=== PATIENT | male | born 1960 | race Two or more races ===

== ENCOUNTER 2017-01-17 12:48 | Emergency (ER) | payer OTHER ==
[2017-01-17 13:49] VITALS: BP 140/78
[2017-01-17] MEDS ORDERED: Tetan/Diph/Pertus SYR(Tdap)* 0.5 ML SYR(BOOSTRIX) use SYR IM ONE (13:50)
[2017-01-17] MEDS ORDERED: Lidocaine 2% PF * 5 ML VIAL INJ ONE (14:01)
--- NOTE | 2017-01-17 14:53 | UC ---
Hand/Wrist HPI - HPI Summary HPI Summary: ONE HOUR [employer]PER[employer] CUT LEFT THUMB ON PIECE OF SHEET METAL. CURRENTLY ON BLOOD THINNER. LAST TETANUS 10YRS AGO. BLEEDING CONTROLLED AT TIME OF CLINICAL VISIT. - History Of Current Complaint Chief Complaint: UCLaceration Stated Complaint: LEFT THUMB LACERATION Time Seen by Provider: 01/17/17 13:33 Hx Obtained From: Patient, Family/Pension Agent Onset/Duration: Sudden Onset, Lasting Minutes, Still Present Severity Initially: Mild Severity Currently: Mild Pain Intensity: 0 Pain Scale Used: 0-10 Numeric Character Of Pain: Sharp Aggravating Factor(s): Movement, Other - TOUCH Alleviating: Nothing Related History: Dominant Hand Right - Allergies/Home Medications Allergies/Adverse Reactions: Allergies Allergy/AdvReac Type Severity Reaction Status Date / Time No Known Allergies Allergy Verified 01/17/17 13:46 Home Medications: Home Medications Atorvastatin* [Lipitor*] 20 mg PO DAILY 01/17/17 [History Confirmed 01/17/17] Rivaroxaban TAB(*) [Xarelto 10 mg (*)] 10 mg PO DAILY 01/17/17 [History Confirmed 01/17/17] PMH/Surg Hx/FS Hx/Imm Hx Previously Healthy: Yes - Surgical History Surgical History: Yes Surgery Procedure, Year, and Place: hyoidectomy. hernia repair x2 - Family History Known Family History: Negative: Blood Disorder - Social History Occupation: Employed Full-time Lives: With Family Alcohol Use: Occasionally Substance Use Type: None Smoking Status (MU): Former Smoker When Did the Patient Quit Smoking/Using Tobacco: 14 years ago - Immunization History Most Recent Influenza Vaccination: no Most Recent Tetanus Shot: unknown Review of Systems Constitutional: Negative Skin: Other - LACERATION LEFT THUMB Eyes: Negative ENT: Negative Respiratory: Negative Cardiovascular: Negative Gastrointestinal: Negative Genitourinary: Negative Motor: Negative Neurovascular: Negative Musculoskeletal: Arthralgia - LEFT THUMB, Myalgia - LEFT THUMB Neurological: Negative Psychological: Negative Is Patient Immunocompromised?: No All Other Systems Reviewed And Are Negative: Yes Physical Exam Triage Information Reviewed: Yes Appearance: Well-Appearing, No Pain Distress, Well-Nourished Vital Signs: Initial Vital Signs Temp 98.5 F 01/17/17 13:43 Pulse 56 01/17/17 13:43 Resp 16 01/17/17 13:43 BP 140/78 01/17/17 13:43 Pulse Ox 99 01/17/17 13:43 Vital Signs Reviewed: Yes Eye Exam: Normal ENT Exam: Normal ENT: Positive: Normal ENT inspection, Hearing grossly normal, TMs normal Dental Exam: Normal Neck exam: Normal Neck: Positive: Supple, Nontender, No Lymphadenopathy Respiratory Exam: Normal Respiratory: Positive: Chest non-tender, Lungs clear, Normal breath sounds, No respiratory distress, No accessory muscle use Cardiovascular Exam: Normal Cardiovascular: Positive: RRR, No Murmur, Pulses Normal Abdominal Exam: Normal Musculoskeletal: Positive: Strength Intact, ROM Intact, No Edema, Other: - LACERATION LEFT THUMB Neurological Exam: Normal Psychological Exam: Normal Skin: Positive: Other - LACERATION LEFT THUMB Procedures - Laceration/Wound Repair 1 Location: upper extremity - LEFT THUMB Description: Irregular Anesthesia: Digital, 2.0% Length, Depth and Shape: 3CM X 5mm X 5mm Irrigated w/ Saline (ccs): 1,000 Laceration/Wound Explored: clean Closure: Single Layer Suture Type: Prolene - 4 X 4-0 Hand/Wrist Course/Dx - Differential Dx/Diagnosis Differential Diagnosis/HQI/PQRI: Infection, Sprain, Strain Provider Diagnoses: LACERATION LEFT THUMB WITH REPAIR Discharge - Discharge Plan Condition: Stable Disposition: HOME Patient Education Materials: Finger Laceration (ED) Referrals: [facility] [place] [facility]IAN REFERRAL [Outside] Additional Instructions: you have four sutures in your left thumb. please have sutures removed in ten days Images Hands: 1 - LACERATION 3CM LEFT THUMB
== END 2017-01-17 14:45 | disposition home or self-care (01) ==
LOC: UCCORT 12:48
DX: S61.012A Laceration without foreign body of left thumb without damage to nail, initial encounter (principal); W45.8XXA Other foreign body or object entering through skin, initial encounter; Y92.9 Unspecified place or not applicable; Z87.891 Personal history of nicotine dependence; Z79.01 Long term (current) use of anticoagulants
CPT/HCPCS: 12002; 90471; 90715; 99211; G0463

== ENCOUNTER 2017-01-25 09:39 | Emergency (ER) | payer OTHER ==
[2017-01-25 10:19] VITALS: BP 147/84
--- NOTE | 2017-01-25 10:35 | ED ---
ED Suture/Wound Check - HPI Summary HPI Summary: 56 yr old male with the complaint of sutures removed from thumb. He has no other complaints. He states he has regained the sensation in the tip of his thumb, and he has no pain at this point. No drainage. - History Of Current Complaint Chief Complaint: UCLaceration Stated Complaint: SUTURE REMOVAL Time Seen by Provider: 01/25/17 10:22 - Allergies/Home Medications Allergies/Adverse Reactions: Allergies Allergy/AdvReac Type Severity Reaction Status Date / Time No Known Allergies Allergy Verified 01/25/17 10:11 PMH/Surg Hx/FS Hx/Imm Hx Previously Healthy: Yes - Surgical History Surgery Procedure, Year, and Place: hyoidectomy. hernia repair x2 Infectious Disease History: No Infectious Disease History: Denies: Traveled Outside the [place] in Last 30 Days - Family History Known Family History: Positive: None Negative: Blood Disorder - Social History Alcohol Use: Occasionally Substance Use Type: Reports: None Smoking Status (MU): Former Smoker Review of Systems Constitutional: Negative Positive: Other - sutures in left thumb All Other Systems Reviewed And Are Negative: Yes Physical Exam Triage Information Reviewed: Yes Vital Signs On Initial Exam: Initial Vitals Temp Pulse Resp BP Pulse Ox 97.6 F 54 16 147/84 100 01/25/17 10:12 01/25/17 10:12 01/25/17 10:12 01/25/17 10:12 01/25/17 10:12 Vital Signs Reviewed: Yes Appearance: Positive: Well-Appearing, No Pain Distress Skin: Positive: Other - sutures thumb Head/Face: Positive: Normal Head/Face Inspection Eyes: Positive: EOMI ENT: Positive: Normal ENT inspection Neck: Positive: Nontender Respiratory/Lung Sounds: Positive: Other - normal effort Musculoskeletal: Positive: Strength/ROM Intact Neurological: Positive: Sensory/Motor Intact, Alert, Oriented to Person Place, Time Procedures - Procedure Summary Procedure Summary: The sutures from the left thumb were removed, and the wound appears healed well without drainage or redness. Diagnostics - Vital Signs Vital Signs Temp Pulse Resp BP Pulse Ox 01/25/17 10:12 97.6 F 54 16 147/84 100 - Laboratory Lab Statement: Any lab studies that have been ordered have been reviewed, and results considered in the medical decision making process. Course/Dx - Course Course Of Treatment: 56 yr old with sutures removed from his left thumb and doing well. DC to home - Clinical Impression Provider Diagnoses: Encounter for removal of sutures Discharge - Discharge Plan Condition: Good Disposition: HOME Patient Education Materials: Stitches Removal (ED) Referrals: Bandar Bonilla MD [Primary Care Provider] -
== END 2017-01-25 10:35 | disposition home or self-care (01) ==
LOC: UCCORT 09:39
DX: Z48.02 Encounter for removal of sutures (principal)

== ENCOUNTER 2017-06-28 09:55 | Emergency (ER) | payer OTHER ==
[2017-06-28 11:16] VITALS: BP 125/72
--- NOTE | 2017-06-28 11:48 | UC ---
Respiratory Complaint HPI - HPI Summary HPI Summary: 57yo thinks he had the flu a week ago f/c, nasal congest and cough as well as myalgias and fatigue now with sinus pressure and pain has been very free for about 3-4 days - History of Current Complaint Chief Complaint: UCRespiratory Stated Complaint: FLU SYMPTOMS Time Seen by Provider: 06/28/17 11:30 Hx Obtained From: Patient Onset/Duration: Gradual Onset, Lasting Days Timing: Constant Severity Initially: Moderate Severity Currently: Mild Pain Intensity: 4 Pain Scale Used: 0-10 Numeric Character: Cough: Nonproductive Aggravating Factors: Nothing Alleviating Factors: Nothing Associated Signs And Symptoms: Positive: Nasal Congestion, Sinus Discomfort - Allergies/Home Medications Allergies/Adverse Reactions: Allergies Allergy/AdvReac Type Severity Reaction Status Date / Time No Known Allergies Allergy Verified 06/28/17 10:56 Home Medications: Home Medications Diphenhydram/PE/Dm/Acetamin/GG [Daytime-Cold [id number]] 2 each PO BID PRN 06/28/17 [History Confirmed 06/28/17] PMH/Surg Hx/FS Hx/Imm Hx Previously Healthy: Yes Cardiovascular History: Deep Vein Thrombosis Respiratory History: Pulmonary Embolism - Surgical History Surgical History: Yes Surgery Procedure, Year, and Place: hyoidectomy. hernia repair x2 - Family History Known Family History: Positive: Hypertension Negative: Blood Disorder - Social History Alcohol Use: Occasionally Substance Use Type: None Smoking Status (MU): Former Smoker When Did the Patient Quit Smoking/Using Tobacco: 2001 - Immunization History Most Recent Influenza Vaccination: no Most Recent Tetanus Shot: unknown Review of Systems Constitutional: Fatigue Skin: Negative Eyes: Negative ENT: Sinus Congestion, Sinus Pain/Tenderness Respiratory: Negative Cardiovascular: Negative Gastrointestinal: Negative Genitourinary: Negative Motor: Negative Neurovascular: Negative Musculoskeletal: Negative Neurological: Headache Psychological: Negative Is Patient Immunocompromised?: No All Other Systems Reviewed And Are Negative: Yes Physical Exam Triage Information Reviewed: Yes Appearance: Well-Appearing, No Pain Distress, Well-Nourished Vital Signs: Initial Vital Signs Temp 99 F 06/28/17 10:58 Pulse 72 06/28/17 10:58 Resp 20 06/28/17 10:58 BP 125/72 06/28/17 10:58 Pulse Ox 98 06/28/17 10:58 Vital Signs Reviewed: Yes Eyes: Positive: Conjunctiva Clear ENT: Positive: Hearing grossly normal, Pharynx normal, Nasal congestion, TMs normal, Sinus tenderness, Uvula midline. Negative: Nasal drainage, TM bulging, TM dull, TM red, Tonsillar swelling, Tonsillar exudate, Trismus, Muffled voice, Hoarse voice Neck: Positive: Supple, Nontender, No Lymphadenopathy Respiratory: Positive: Lungs clear, Normal breath sounds, No respiratory distress, No accessory muscle use Cardiovascular: Positive: RRR, No Murmur Musculoskeletal: Positive: ROM Intact, No Edema Neurological: Positive: Alert, Muscle Tone Normal Psychological Exam: Normal Skin Exam: Normal UC Diagnostic Evaluation - Laboratory O2 Sat by Pulse Oximetry: 98 - normal/not hypoxic Respiratory Course/Dx - Differential Dx/Diagnosis Provider Diagnoses: acute sinusitis Discharge - Discharge Plan Condition: Stable Disposition: HOME Prescriptions: Amoxicillin PO (*) [Amoxicillin 875 MG (*)] 875 mg PO BID #20 tab Patient Education Materials: Sinusitis (ED) Referrals: Bandar Bonilla MD [Primary Care Provider] - 5 Days (if not better)
== END 2017-06-28 11:52 | disposition home or self-care (01) ==
LOC: UCCORT 09:55
DX: J01.90 Acute sinusitis, unspecified (principal); Z86.718 Personal history of other venous thrombosis and embolism; Z87.891 Personal history of nicotine dependence; Z86.711 Personal history of pulmonary embolism
CPT/HCPCS: 99212; G0463

== ENCOUNTER 2017-12-31 07:43 | Emergency (ER) | payer OTHER ==
[2017-12-31 08:02] VITALS: BP 154/83
[2017-12-31] MEDS ORDERED: Lidocaine 2% 10 ML* VIAL INJ ONE (08:10)
[2017-12-31] MEDS ORDERED: Lidocaine 2% PF * 5 ML VIAL INJ ONE (08:15)
--- NOTE | 2017-12-31 08:15 | UC ---
Laceration HPI - HPI Summary HPI Summary: laceration left ring finger x 1 hr ago cut his left ring finger on a metal object this morning cut is deep , bleeding was controlled by applying pressure , he is moving his finger well - History Of Current Complaint Chief Complaint: UCLaceration Stated Complaint: LEFT RING FINGER LACERATION Time Seen by Provider: 12/31/17 07:59 Hx Obtained From: Patient Laceration Location: Finger - left ring finger Mechanism Of Injury: Blunt Trauma Onset/Duration: Sudden Onset, Lasting Hours - 1, Still Present Severity: Moderate Pain Intensity: 3 Aggravating Factors: Nothing - Allergies/Home Medications Allergies/Adverse Reactions: Allergies Allergy/AdvReac Type Severity Reaction Status Date / Time No Known Allergies Allergy Verified 12/31/17 08:03 Home Medications: Home Medications Fluticasone NASAL SPRAY 50MCG* [Flonase NASAL SPRAY 50MCG*] 1 spray BOTH NARES DAILY 12/31/17 [History Confirmed 12/31/17] PMH/Surg Hx/FS Hx/Imm Hx - Additional Past Medical History Additional PMH: PE / DVT Cardiovascular History: Deep Vein Thrombosis - Surgical History Surgical History: Yes Surgery Procedure, Year, and Place: hyoidectomy. hernia repair x2 - Family History Known Family History: Positive: None, Hypertension Negative: Blood Disorder - Social History Alcohol Use: Occasionally Substance Use Type: None Smoking Status (MU): Former Smoker When Did the Patient Quit Smoking/Using Tobacco: 2001 - Immunization History Most Recent Influenza Vaccination: no Most Recent Tetanus Shot: 2016 Review of Systems Constitutional: Negative Eyes: Negative ENT: Negative Respiratory: Negative Cardiovascular: Negative Is Patient Immunocompromised?: No All Other Systems Reviewed And Are Negative: Yes Physical Exam Triage Information Reviewed: Yes Appearance: Well-Appearing, No Pain Distress, Well-Nourished Vital Signs: Initial Vital Signs Temp 98.7 F 12/31/17 07:55 Pulse 70 12/31/17 07:55 Resp 18 12/31/17 07:55 BP 154/83 12/31/17 07:55 Pulse Ox 97 12/31/17 07:55 Vital Signs Reviewed: Yes Eye Exam: Normal Eyes: Positive: Conjunctiva Clear ENT: Positive: Normal ENT inspection, Hearing grossly normal, Pharynx normal Neck exam: Normal Neck: Positive: Supple, Nontender Respiratory: Positive: Chest non-tender, Lungs clear, Normal breath sounds Cardiovascular: Positive: RRR, No Murmur, Pulses Normal Skin: Positive: Other - laceration left ring finger 1 cm in diameter, minimal bleeding Laceration Repair - Laceration Repair 1 Description: Linear Laceration Size After Repair: Length (cm) - 1, Width (mm) - 2, Depth (mm) - 2 Modified For Repair: No Type Injection: Local Anesthesia Used: 2.0% Lido - 5 ml Cleansing Completed Via Routine Prep: Yes Irrigation With Pressure Irrigation Device: Yes Closure Method: Single Layer Suture Of: Skin Suture Type: Nylon - 5.0 x 5 Laceration Course/Dx - Differential Dx - Laceration/Wound Provider Diagnoses: laceration left ring finger Discharge - Sign-Out/Discharge Documenting (check all that apply): Patient Departure All imaging exams completed and their final reports reviewed: No Studies - Discharge Plan Condition: Stable Disposition: HOME Patient Education Materials: Finger Laceration (ED) Referrals: Bandar Bonilla MD [Primary Care Provider] - Additional Instructions: follow up in 10 days for suture removal - Billing Disposition and Condition Condition: STABLE Disposition: Home
== END 2017-12-31 08:56 | disposition home or self-care (01) ==
LOC: UCCORT 07:43
DX: S61.215A Laceration without foreign body of left ring finger without damage to nail, initial encounter (principal); W26.9XXA Contact with unspecified sharp object(s), initial encounter; Y93.9 Activity, unspecified; Y92.9 Unspecified place or not applicable; Z87.891 Personal history of nicotine dependence
CPT/HCPCS: 12001; 99211; G0463

== ENCOUNTER 2018-02-25 12:12 | Emergency (ER) | payer OTHER ==
[2018-02-25 12:47] VITALS: BP 127/76
--- NOTE | 2018-02-25 13:06 | UC ---
Complaint Male HPI - HPI Summary HPI Summary: dysuria x 3 days frequency / hesitancy , + fever, chills , body aches lower abdominal pain , no nausea or vomiting - History of Current Complaint Chief Complaint: UCGU Stated Complaint: URINARY COMPLAINT Time Seen by Provider: 02/25/18 12:40 Hx Obtained From: Patient Onset/Duration: Gradual Onset, Lasting Days - 3, Still Present Timing: Constant Severity Initially: Moderate Severity Currently: Moderate Pain Intensity: 0 Location: Suprapubic Character: Burning Aggravating Factor(s): Voiding Associated Signs And Symptoms: Positive: Diaphoresis, Back Pain, Fever, Dysuria , Penile Discharge. Negative: Nausea, Penile Swelling - Allergies/Home Medications Allergies/Adverse Reactions: Allergies Allergy/AdvReac Type Severity Reaction Status Date / Time No Known Allergies Allergy Verified 02/25/18 12:41 Home Medications: Home Medications Acetaminophen [Acetaminophen Extra Strength] 500 mg PO ONCE PRN 02/25/18 [ History Confirmed 02/25/18] PMH/Surg Hx/FS Hx/Imm Hx - Additional Past Medical History Additional PMH: PE, DVT high cholesterol Respiratory History: Pulmonary Embolism - Surgical History Surgical History: Yes Surgery Procedure, Year, and Place: hyoidectomy. hernia repair x2 - Family History Known Family History: Positive: None, Hypertension Negative: Blood Disorder - Social History Alcohol Use: Occasionally Substance Use Type: None Smoking Status (MU): Former Smoker When Did the Patient Quit Smoking/Using Tobacco: 2001 - Immunization History Most Recent Influenza Vaccination: no Most Recent Tetanus Shot: 2017 Review of Systems Constitutional: Fever, Chills, Fatigue Skin: Negative Eyes: Negative ENT: Negative Respiratory: Negative Cardiovascular: Negative Is Patient Immunocompromised?: No All Other Systems Reviewed And Are Negative: Yes Physical Exam Triage Information Reviewed: Yes Appearance: Well-Appearing, No Pain Distress Vital Signs: Initial Vital Signs Temp 99.4 F 02/25/18 12:42 Pulse 77 02/25/18 12:42 Resp 16 02/25/18 12:42 BP 127/76 02/25/18 12:42 Pulse Ox 100 02/25/18 12:42 Vital Signs Reviewed: Yes Eyes: Positive: Conjunctiva Clear ENT: Positive: Normal ENT inspection, Hearing grossly normal, Pharynx normal Neck: Positive: Supple, Nontender, No Lymphadenopathy Respiratory: Positive: Chest non-tender, Lungs clear, Normal breath sounds Cardiovascular: Positive: RRR, No Murmur, Pulses Normal Abdominal Exam: Normal Abdomen Description: Positive: Nontender, Soft. Negative: CVA Tenderness (R), CVA Tenderness (L), Distended, Guarding Bowel Sounds: Positive: Present Skin Exam: Normal Complaint Male Course/Dx - Differential Dx/Diagnosis Provider Diagnoses: prostatitis Discharge - Sign-Out/Discharge Documenting (check all that apply): Patient Departure All imaging exams completed and their final reports reviewed: No Studies - Discharge Plan Condition: Stable Disposition: HOME Prescriptions: Ciprofloxacin TAB* [Cipro 500 MG TAB*] 500 mg PO BID #20 tab Patient Education Materials: Prostatitis (ED) Referrals: Bandar Bonilla MD [Primary Care Provider] - 7 Days - Billing Disposition and Condition Condition: STABLE Disposition: Home
== END 2018-02-25 13:05 | disposition home or self-care (01) ==
LOC: UCCORT 12:12
DX: N41.9 Inflammatory disease of prostate, unspecified (principal); Z87.891 Personal history of nicotine dependence
CPT/HCPCS: 81003; 87086; 99212; G0463

== ENCOUNTER 2019-03-17 08:14 | Emergency (ER) | payer OTHER ==
--- OUTSIDE RECORDS SUMMARY | 2019-03-17 08:21 | XMS REPORT | Continuity of Care Document ---
:1960 External Reference #:[id number] Author Name Sharon Loo MD (transmitted by agent of provider Melania Austin) Address [address], [place] [address] Care Team Providers Name Role Phone Sharon Loo M.D. 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 Problems Active Problems Provider Date Impaired fasting glycaemia Bandar Bonilla M.D.,FACP Onset: 07/03/2016 H/O: pulmonary embolus Bandar Bonilla M.D.,FACP Onset: 07/03/2016 Note: 1981 H/O: Deep vein thrombosis Bandar Bonilla M.D.,FACP Onset: 07/03/2016 Note: 1995 Mixed hyperlipidemia Bandar Bonilla M.D.,FACP Onset: 07/03/2016 Allergic rhinitis due to pollen Bandar Bonilla M.D.,FACP Onset: 2017 Social History Type Date Description Comments Sex Unknown Tobacco Use Start: Unknown End: Former Cigarette Smoker Unknown Smoking Status Reviewed: 02/25/19 Former Cigarette Smoker ETOH Use 07/03/2016 consumes 2-3 beers per day Tobacco Use Start: Unknown End: Patient is a former Quit 2001; 1ppd Unknown smoker max, began age 15 Recreational Drug Use Denies Drug Use Exercise Type/Frequency Exercises rarely Allergies, Adverse Reactions, Alerts Description No Known Drug Allergies Medications Active Medications SIG Qnty Indications Ordering Date Provider Sildenafil Citrate 1/2 tablet one hour 10tabs Sharon Loo MD 10/16/2018 before intercourse 100mg Tablets Fluticasone spray 1 spray in 16gm Bandar Crowder 02/05/2017 Propionate each nostril twice Devante Bonilla,FACP 50mcg/Act daily prn Suspension Xarelto 1 by mouth every 14tabs Sharon Loo MD 01/05/2016 20mg Tablets day samples Atorvastatin Calcium 1 by mouth every 90tabs Sharon Loo MD day 10mg Tablets Alavert 1 every 12 hours as Unknown Allergy/Sinus needed 5-120mg Tablets ER 12HR Immunizations CPT Code Status Date Vaccine Lot # [id number] Given 06/15/2016 Tdap - Tetanus/Diptheria/Acellular Pertussis Vital Signs Date Vital Result Comment 02/25/2019 8:27am Height 75.75 inches 6'3.75" Weight 197.00 lb Heart Rate 65 /min BP Systolic Sitting 159 mmHg BP Diastolic Sitting 80 mmHg O2 % BldC Oximetry 99 % BMI (Body Mass Index) 24.1 kg/m2 08/26/2018 11:21am Height 75.75 inches 6'3.75" Weight 198.00 lb Heart Rate 66 /min BP Systolic Sitting 171 mmHg BP Diastolic Sitting 96 mmHg BMI (Body Mass Index) 24.3 kg/m2 Results Test Date Facility Test Result H/L Range Note PSA Free And Total 09/09/2018 [facility] PSA Total 2.4 ng/mL <=3.5 [address] [place] [address] [phone] PSA Free 0.4 ng/mL PSA Free/Total See Comment ratio 1 1 Ratio not calculated because clinical usefulness is not defined except in range of total PSA 4.0-10.0 ng/mL. ADDITIONAL INFORMATION The testing method is an electrochemiluminescence assay manufactured by [employer] and performed on the Modular or Kelechi system. Values obtained with different assay methods or kits may be different and cannot be used interchangeably. Test results cannot be interpreted as absolute evidence for the presence or absence of malignant disease. Test Performed by: [facility] [email or web address] - [facility] [address] [place] [address] Procedures Date Code Description Status 08/17/2014 [id number] Colonoscopy Completed Medical Devices Description No Information Available Encounters Description No Information Available Assessments Date Code Description Provider 02/25/2019 I10 Essential (primary) hypertension Sharon Loo MD Plan of Treatment Future Appointment(s):09/04/2019 2:20 pm - Sharon Loo MD at [facility] - [facility]02/25/2019 - Sharon Loo MDI10 Essential (primary) hypertensionNew Orders:24 Hour Blood Pressure Monitors, Ordered: 02/25/19Follow up:PE in 6 months Functional Status Description No Information Available Mental Status Description No Information Available Referrals Description No Information Available
[2019-03-17 08:31] VITALS: BP 129/65
--- NOTE | 2019-03-17 08:59 | UC ---
Complaint Male HPI - HPI Summary HPI Summary: burning with urination x 1 day dark urine, + frequency , urgency no fever, no chills, no flank pain clear / white discharge no concern about STDs - History of Current Complaint Chief Complaint: UCGU Stated Complaint: URINARY COMPLAINT Time Seen by Provider: 03/17/19 08:25 Hx Obtained From: Patient Onset/Duration: Gradual Onset, Lasting Days - 1, Still Present Timing: Constant Severity Initially: Moderate Severity Currently: Moderate Pain Intensity: 0 Location: Penis Character: Burning Aggravating Factor(s): Voiding Alleviating Factor(s): Nothing Associated Signs And Symptoms: Positive: Dysuria, Penile Discharge. Negative: Diaphoresis, Back Pain, Fever, Hematuria, Constipation, Blood in Stool, Rectal Pain, Appetite, Nausea, Vomiting(# Of Episodes =), Penile Swelling - Allergies/Home Medications Allergies/Adverse Reactions: Allergies Allergy/AdvReac Type Severity Reaction Status Date / Time No Known Allergies Allergy Verified 03/17/19 08:23 PMH/Surg Hx/FS Hx/Imm Hx - Additional Past Medical History Additional PMH: DVT Respiratory History: Pulmonary Embolism - Surgical History Surgical History: Yes Surgery Procedure, Year, and Place: hyoidectomy. hernia repair x2 - Family History Known Family History: Positive: None, Hypertension Negative: Blood Disorder - Social History Alcohol Use: Occasionally Substance Use Type: None Smoking Status (MU): Former Smoker When Did the Patient Quit Smoking/Using Tobacco: 2001 - Immunization History Most Recent Influenza Vaccination: no Most Recent Tetanus Shot: 2017 Review of Systems All Other Systems Reviewed And Are Negative: Yes Constitutional: Positive: Negative Skin: Positive: Negative Eyes: Positive: Negative ENT: Positive: Negative Respiratory: Positive: Negative Genitourinary: Positive: Dysuria, Frequency, Urgency Is Patient Immunocompromised?: No Physical Exam Triage Information Reviewed: Yes Appearance: Well-Appearing, No Pain Distress, Well-Nourished Vital Signs: Initial Vital Signs Temp 99 F 03/17/19 08:26 Pulse 76 03/17/19 08:26 Resp 15 03/17/19 08:26 BP 129/65 03/17/19 08:26 Pulse Ox 95 03/17/19 08:26 Vital Signs Reviewed: Yes Eye Exam: Normal Eyes: Positive: Conjunctiva Clear ENT Exam: Normal ENT: Positive: Normal ENT inspection, Hearing grossly normal, Pharynx normal Neck exam: Normal Neck: Positive: Supple Respiratory: Positive: Chest non-tender, Lungs clear, Normal breath sounds Cardiovascular: Positive: RRR, No Murmur, Pulses Normal Abdominal Exam: Normal Abdomen Description: Positive: Nontender, Soft. Negative: CVA Tenderness (R), CVA Tenderness (L), Distended, Guarding Bowel Sounds: Positive: Present Skin Exam: Normal Complaint Male Course/Dx - Differential Dx/Diagnosis Provider Diagnosis: UTI (urinary tract infection) Discharge ED - Sign-Out/Discharge Documenting (check all that apply): Patient Departure All imaging exams completed and their final reports reviewed: No Studies - Discharge Plan Condition: Stable Disposition: HOME Prescriptions: Ciprofloxacin TAB* [Cipro 500 MG TAB*] 500 mg PO BID #14 tab Patient Education Materials: Urinary Tract Infection in Men (ED) Referrals: Sharon Loo MD [Primary Care Provider] - If Needed - Billing Disposition and Condition Condition: STABLE Disposition: Home
[2019-03-18 13:21] LABS: Chlamydia trachomatis NAA Negative (Negative); Neisseria gonorrhoeae (GC) NAA Negative (Negative)
[2019-03-19 22:03] LABS: Trichomonas vaginalis SOURCE: Urine (Male Patient)
== END 2019-03-17 09:04 | disposition home or self-care (01) ==
LOC: UCCORT 08:14
DX: N39.0 Urinary tract infection, site not specified (principal); Z87.891 Personal history of nicotine dependence
CPT/HCPCS: 81003; 87077; 87086; 87186; 87491; 87591; 87661; 99212; G0463